=== PATIENT | female | born 1960 | race Caucasian/White ===

== ENCOUNTER 2022-07-16 09:22 | Day surgery (SDC) | payer SELFPAY ==
[2022-07-09 14:50] VITALS: BMI 29.0
[~2022-07-16 09:22] MED LIST: ACETAMINOPHEN 325 MG TABLET (FP) PO PRN; LACTATED RINGERS SOLUTION 1,000 ML IV SCH; ONDANSETRON 4 MG/2 ML VIAL IVPUSH PRN; oxyCODONE HCL 5 MG TABLET PO PRN
[2022-07-16] MEDS ORDERED: EPINEPHrine/PF 1 MG/1 ML (1:1,000) AMPULE ONE (10:23)
[2022-07-16] MEDS ORDERED: LIDOCAINE HCL 1%, 10 MG/ML (20ML VIAL) ONE (10:24)
[2022-07-16] MEDS ORDERED: BACITRACIN ZINC 15 GM TUBE TOPICAL OINTMENT ONE ×2 (10:24→15:47)
[2022-07-16] MEDS ORDERED: PROPOFOL 20 ML ONE (12:52)
[2022-07-16] MEDS ORDERED: SUCCINYLCHOLINE CHLORIDE 200 MG/10 ML SYRINGE ONE (12:52)
[2022-07-16] MEDS ORDERED: ROCURONIUM BROMIDE 50 MG/5 ML SYRINGE ONE (12:55)
[2022-07-16] MEDS ORDERED: MIDAZOLAM HCL 2 MG/2 ML SINGLE DOSE VIAL ONE (12:56)
[2022-07-16] MEDS ORDERED: SEVOFLURANE 250 ML BTL ONE (14:10)
[2022-07-16] MEDS ORDERED: HYDROmorphone HCL/PF 1 MG/ML VIAL ONE (14:49)
[2022-07-16] MEDS ORDERED: ONDANSETRON 4 MG/2 ML VIAL ONE (15:47)
[2022-07-16] MEDS ORDERED: GLYCOPYRROLATE 0.2 MG/1 ML VIAL ONE (15:47)
[2022-07-16] MEDS ORDERED: NEOSTIGMINE METHYLSULFATE 0.5 MG/1 ML - 10 ML MDV ONE (15:47)
[2022-07-16] MEDS ORDERED: ACETAMINOPHEN INJECTION 100 ML IVPB ONE (16:32)
[2022-07-16] MEDS ORDERED: LABETALOL HCL 5 MG/1 ML (100MG/20 ML VIAL) ONE (16:58)
[2022-07-16] MEDS ORDERED: HYDROmorphone HCl 2 MG/ML VIAL IVPB PRN (16:58)
[2022-07-16] MEDS: LABETALOL HCL 5 MG/1 ML (100MG/20 ML VIAL) IVPUSH ONE ×2 (17:00→18:45)
[2022-07-16] MEDS ORDERED: ONDANSETRON 4 MG/2 ML VIAL IVPUSH PRN (17:03)
[2022-07-16] MEDS ORDERED: PROMETHAZINE HCL 25 MG/1 ML VIAL IVPB PRN (17:03)
[2022-07-16] MEDS: ACETAMINOPHEN 1000 MG/100 ML BAG IVPB ONE ×2 (17:13→18:45)
[2022-07-16] MEDS: KETOROLAC TROMETHAMINE 30 MG/1 ML VIAL IVPUSH ONE ×2 (17:13→18:46)
[2022-07-16] MEDS ORDERED: KETOROLAC TROMETHAMINE 30 MG/1 ML VIAL ONE (17:13)
[2022-07-16] MEDS ORDERED: LACTATED RINGERS SOLUTION 1,000 ML IV SCH (17:15)
[2022-07-16] MEDS: DOCUSATE SODIUM 100 MG CAPSULE (FP) PO SCH ×2 (18:45→21:31)
[2022-07-16] MEDS: CEFAZOLIN 1 GM in DEXTROSE 5%-WATER - 50 ML IVPB SCH ×2 (18:45→21:45)
[2022-07-16] MEDS: oxyCODONE HCL 5 MG TABLET PO PRN ×2 (19:39→23:02)
[2022-07-16] MEDS ORDERED: ENOXAPARIN NA (PORCINE) 40 MG/0.4 ML DISP.SYRIN SQ ONE (21:00)
[2022-07-17] MEDS: CEFAZOLIN 1 GM in DEXTROSE 5%-WATER - 50 ML IVPB SCH (03:31)
[2022-07-17] MEDS: oxyCODONE HCL 5 MG TABLET PO PRN ×5 (03:31→17:09)
[2022-07-17] MEDS: DOCUSATE SODIUM 100 MG CAPSULE (FP) PO SCH (10:10)
[2022-07-17 18:05] VITALS: BP 143/41; PULSE 78; RESP 17; TEMP 97.9
== END 2022-07-17 19:36 | disposition home or self-care (01) ==
LOC: FASUSAT 09:22 → FM/S 18:27 → FASUSAT 07-17 19:36
PROVIDERS: ATTEND Surgery
PROC: 0J093ZZ Alteration of Buttock Subcutaneous Tissue and Fascia, Percutaneous Approach (ICD-10-PCS; 2022-07-16)
PROC: 0J0M3ZZ Alteration of Left Upper Leg Subcutaneous Tissue and Fascia, Percutaneous Approach (ICD-10-PCS; 2022-07-16)
PROC: 0J0L3ZZ Alteration of Right Upper Leg Subcutaneous Tissue and Fascia, Percutaneous Approach (ICD-10-PCS; 2022-07-16)
PROC: 0J063ZZ Alteration of Chest Subcutaneous Tissue and Fascia, Percutaneous Approach (ICD-10-PCS; 2022-07-16)
PROC: 0J073ZZ Alteration of Back Subcutaneous Tissue and Fascia, Percutaneous Approach (ICD-10-PCS; 2022-07-16)
PROC: 0J083ZZ Alteration of Abdomen Subcutaneous Tissue and Fascia, Percutaneous Approach (ICD-10-PCS; principal; 2022-07-16 14:13)
DX: Z41.1 Encounter for cosmetic surgery (principal); E65 Localized adiposity
CPT/HCPCS: 94760

== ENCOUNTER 2023-05-28 06:34 | Day surgery (SDC) | payer SELFPAY ==
[2023-05-20 16:41] VITALS: BMI 25.6
[~2023-05-28 06:34] MED LIST changes: -ACETAMINOPHEN 325 MG TABLET (FP) PO PRN; +DOCUSATE SODIUM 100 MG CAPSULE (FP) PO PRN; -LACTATED RINGERS SOLUTION 1,000 ML IV SCH
[2023-05-28] MEDS ORDERED: LIDOCAINE 1%/EPI 1:100000 (20 ML MULTI DOSE VIAL) ONE ×2 (07:36→10:38)
[2023-05-28] MEDS ORDERED: BUPIVACAINE HCL/PF 2.5 MG/ML - 30 ML VIAL IJ ONE (07:36)
[2023-05-28] MEDS ORDERED: GUM MASTIC/STORAX/MSAL/ALCOHOL 1 DRP DROPSBTL MC ONE (07:37)
[2023-05-28] MEDS ORDERED: ceFAZolin SODIUM 1 GM VIAL ONE ×2 (07:59→14:36)
[2023-05-28] MEDS ORDERED: DEXAMETHASONE SOD PHOSPHATE 4 MG/1 ML VIAL ONE (07:59)
[2023-05-28] MEDS ORDERED: PROPOFOL 20 ML ONE ×2 (07:59→14:32)
[2023-05-28] MEDS ORDERED: ONDANSETRON 4 MG/2 ML VIAL ONE (07:59)
[2023-05-28] MEDS ORDERED: MIDAZOLAM HCL 2 MG/2 ML SINGLE DOSE VIAL ONE (07:59)
[2023-05-28] MEDS ORDERED: LIDOCAINE HCL/PF 2% SDV 5ML VIAL ONE (07:59)
[2023-05-28] MEDS ORDERED: ROCURONIUM BROMIDE 50 MG/5 ML SYRINGE ONE (07:59)
[2023-05-28] MEDS ORDERED: SUGAMMADEX SODIUM 200 MG/2 ML VIAL ONE (08:00)
[2023-05-28] MEDS ORDERED: ePHEDrine SULFATE 50 MG/1 ML AMPULE ONE (10:47)
[2023-05-28] MEDS ORDERED: PROPOFOL 40 ML ONE (14:13)
[2023-05-28] MEDS: BUPIVACAINE HCL/PF 0.25% (2.5MG/ML) 10 ML VIAL IJ ONE (15:18)
[2023-05-28] MEDS ORDERED: ONDANSETRON 4 MG/2 ML VIAL IVPUSH PRN (15:22)
[2023-05-28] MEDS ORDERED: FENTANYL CITRATE/PF 50 MCG/ML VIAL ONE ×3 (16:13→17:03)
[2023-05-28] MEDS ORDERED: ACETAMINOPHEN INJECTION 100 ML IVPB ONE (16:13)
[2023-05-28] MEDS: ACETAMINOPHEN 1000 MG/100 ML BAG IVPB ONE (16:20)
[2023-05-28] MEDS: HYDROmorphone HCl 2 MG/ML VIAL IVPB PRN (18:14)
[2023-05-28] MEDS: CEFAZOLIN 1 GM in DEXTROSE 5%-WATER - 50 ML IVPB SCH (18:15)
[2023-05-28] MEDS: LACTATED RINGERS SOLUTION 1,000 ML IV SCH (18:15)
[2023-05-29] MEDS: oxyCODONE HCL 5 MG TABLET PO PRN (00:04)
[2023-05-29] MEDS: LACTATED RINGERS SOLUTION 1,000 ML IV SCH (10:24)
[2023-05-29] MEDS: ENOXAPARIN NA (PORCINE) 40 MG/0.4 ML DISP.SYRIN SQ ONE (22:56)
[2023-05-29] MEDS: HYDROmorphone HCL 2 MG TABLET PO PRN (22:56)
[2023-05-30 09:56] VITALS: RESP 18
[2023-05-30] MEDS: ACETAMINOPHEN 325 MG TABLET (FP) PO PRN (10:04)
[2023-05-30 14:11] VITALS: BP 126/63; PULSE 72; TEMP 98.1
== END 2023-05-30 17:23 | disposition home or self-care (01) ==
LOC: FASUSAT 06:34 → FM/S 17:38 → FASUSAT 05-30 17:23
PROVIDERS: ATTEND Surgery
PROC: 0H0V0ZZ Alteration of Bilateral Breast, Open Approach (ICD-10-PCS; principal; 2023-05-28 10:41)
PROC: 0H0V0ZZ Alteration of Bilateral Breast, Open Approach (ICD-10-PCS; 2023-05-28 10:41)
DX: N62 Hypertrophy of breast (principal); N64.81 Ptosis of breast
CPT/HCPCS: 88305-TC; 94760; J0131